=== PATIENT | female | born 1990 | race Caucasian/White ===

== ENCOUNTER 2020-07-06 07:25 | Emergency (ER) | payer OTHER, BC ==
[~2020-07-06] VITALS: Ht 160 cm; Wt 106.6 kg
[~2020-07-06 07:25] MED LIST: ACEASPCAF PO; ALBU90OI INH; AMOX500 PO; Bentyl20 MG PO; DOXY100 PO; HYDACE5 PO; IBUP800 PO; LABE200 PO; NAPR500 PO; OXYC10TA19 PO; RXHYDACE PO; TRAM50 PO; URSO300 PO; Verotin-Gr Cap1 EACH PO
== END 2020-07-06 09:10 | disposition home or self-care (01) ==
LOC: ER 07:25
DX: S66.911A Strain of unspecified muscle, fascia and tendon at wrist and hand level, right hand, initial encounter (principal); Z91.040 Latex allergy status; X50.1XXA Overexertion from prolonged static or awkward postures, initial encounter
CPT/HCPCS: 73110; 99283-25; L3917

== ENCOUNTER → 2023-01-21 | Outpatient (CLI) | payer OTHER ==
[2023-01-23 15:11] LABS: HPV 16 Negative (Negative); HPV 18 Negative (Negative); HPV OTHER HR TYPES Negative (Negative)
== END | disposition home or self-care (01) ==
LOC: LAB SHORT 09:57 → LAB 09:57
PROVIDERS: Family Medicine
DX: Z01.419 Encounter for gynecological examination (general) (routine) without abnormal findings (principal)
CPT/HCPCS: 87624; G0145